=== PATIENT | male | born 1955 | race Caucasian/White ===

== ENCOUNTER 2019-09-04 09:22 | Inpatient (IN) ==
--- NOTE | 2019-08-27 09:21 | EKG Report ---
Test Performed on : 08/27/2019 09:16:38 AM Test Reason : PAT Blood Pressure : / mmHG Vent. Rate : 068 BPM Atrial Rate : 068 BPM P-R Int : 154 ms QRS Dur : 084 ms QT Int : 370 ms P-R-T Axes : 081 093 072 degrees QTc Int : 393 ms Normal sinus rhythm. Rightward axis Borderline ECG When compared with ECG of 17-OCT-2013 15:49, Questionable change in QRS axis Unconfirmed Result
[2019-08-27 09:29] LABS: URINE SOURCE CLEAN CATCH
[2019-08-27 09:44] LABS: BILIRUBIN URINE NEGATIVE (NEGATIVE); BLOOD URINE NEGATIVE (NEGATIVE); COLOR YELLOW; GLUCOSE URINE NEGATIVE (NEGATIVE); KETONE URINE NEGATIVE (NEGATIVE); LEUKOCYTES URINE NEGATIVE (NEGATIVE); NITRITE URINE NEGATIVE (NEGATIVE); PROTEIN URINE NEGATIVE (NEGATIVE); TURBIDITY URINE CLEAR (CLEAR); UROBILINOGEN URINE NORMAL (NORMAL)
[2019-08-27 09:45] LABS: BASO# 0.03 X1000 (0.0-0.2); BASO% 0.4 % (0.0-0.8); EOS# 0.13 X1000 (0.0-0.7); EOS% 1.7 % (0.0-10.0); HEMATOCRIT 43.1 % (42.0-52.0); HEMOGLOBIN 14.5 g/dL (14.0-18.0); IMM GRAN# 0.04 X1000 (0.0-0.04); IMM GRAN% 0.5 % (0.0-0.5); LYMPH# 1.92 X1000 (1.2-3.4); MCH 32.9 PG (27-31); MCHC 33.6 g/dL (33-37); MCV 97.7 FL (81-99); MONO# 0.85 X1000 (0.11-0.59); MONO% 11.1 % (1.7-9.3); MPV 8.9 FL (7.4-10.4); NEUT# 4.71 X1000 (1.4-6.5); NEUT% 61.3 % (42.2-75.2); PLT 254 X1000 (130-400); RBC 4.41 XMIL (4.7-6.1); RDW 13.6 % (11.5-14.5); UR EPITHELIAL CELLS <10 /HPF (<10); URINE BACTERIA NEGATIVE /HPF; URINE RBC <10 /HPF (<10); URINE WBC <10 /HPF (<10); WBC 7.68 X1000 (4.8-10.8)
[2019-08-27 10:00] LABS: INR 0.99; PROTIME 13.2 Seconds (11.0-16.0); PTT 26.6 Seconds (22.3-41.8)
[2019-08-27 10:08] LABS: HEMOGLOBIN A1C 6.3 % (4.8-6.0)
[2019-08-27 10:11] LABS: BUN 17 mg/dL (8-22); CALCIUM 9.5 mg/dL (8.8-10.2); CREATININE 0.7 mg/dL (0.7-1.2); ESTIMATED GFR > 60; GLUCOSE 107 mg/dL (70-104); TCO2 26 mmol/L (25-35)
[2019-08-27 10:18] LABS: CHLORIDE 99 mmol/L (98-107); POTASSIUM 4.5 mmol/L (3.5-5.1); SODIUM 139 mmol/L (136-145)
[2019-08-27 10:40] LABS: AGAP 14; COSMO 280
[2019-09-04] MEDS ORDERED: COLACE ONE (10:11)
[2019-09-04] MEDS ORDERED: LYRICA ONE (10:11)
[2019-09-04] MEDS ORDERED: KEFZOL 1 GM/D5W 1 GM/50 ML IVPB ONE (10:11)
[2019-09-04] MEDS ORDERED: CELEBREX ONE (10:11)
[2019-09-04] MEDS ORDERED: REGLAN ONE (10:11)
[2019-09-04] MEDS ORDERED: PEPCID ONE (10:11)
[2019-09-04] MEDS ORDERED: LR 1,000 ML ONE (10:12)
[2019-09-04] MEDS ORDERED: VANCOMYCIN ONE (10:25)
[2019-09-04] MEDS ORDERED: DURAMORPH ONE (10:25)
[2019-09-04] MEDS ORDERED: EXPAREL 1.3% ONE (10:25)
[2019-09-04] MEDS ORDERED: TORADOL ONE (10:25)
[2019-09-04] MEDS ORDERED: MARCAINE 0.25% PF/EPI 1:200,000 ONE (10:25)
[2019-09-04] MEDS ORDERED: SODIUM CHLORIDE 0.9% ONE (10:25)
[2019-09-04] MEDS ORDERED: DIPRIVAN 1% 500 MG/50 ML BOTTLE ONE (10:33)
[2019-09-04] MEDS ORDERED: FENTANYL ONE (10:36)
[2019-09-04] MEDS ORDERED: XYLOCAINE-MPF 2% ONE (10:37)
[2019-09-04] MEDS ORDERED: VERSED ONE ×2 (10:55→11:31)
[2019-09-04] MEDS: CYKLOKAPRON 1,000 MG/NS 2,000 MG/200 ML IVPB ONE ×2 (11:15→12:58)
[2019-09-04] MEDS ORDERED: EPHEDRINE ONE (12:00)
[2019-09-04] MEDS ORDERED: ZOFRAN ONE (12:09)
[2019-09-04] MEDS ORDERED: DECADRON ONE (12:09)
[2019-09-04] MEDS ORDERED: OFIRMEV 1000 MG/ISOTONIC SOLN 1,000 MG/100 ML BOTTLE ONE (12:09)
[2019-09-04] MEDS ORDERED: DIPRIVAN 1% ONE (12:15)
[2019-09-04 12:22] LABS: URINE SOURCE CATH
[2019-09-04 12:26] LABS: BILIRUBIN URINE NEGATIVE (NEGATIVE); BLOOD URINE NEGATIVE (NEGATIVE); COLOR YELLOW; GLUCOSE URINE NEGATIVE (NEGATIVE); KETONE URINE NEGATIVE (NEGATIVE); LEUKOCYTES URINE NEGATIVE (NEGATIVE); NITRITE URINE NEGATIVE (NEGATIVE); PH URINE 6.5; PROTEIN URINE NEGATIVE (NEGATIVE); SP GRAVITY URINE 1.009; TURBIDITY URINE CLEAR (CLEAR); UROBILINOGEN URINE NORMAL (NORMAL)
[2019-09-04 12:27] LABS: UR EPITHELIAL CELLS <10 /HPF (<10); URINE BACTERIA NEGATIVE /HPF; URINE RBC <10 /HPF (<10); URINE WBC <10 /HPF (<10)
[2019-09-04] MEDS ORDERED: OXY IR ONE (13:57)
[2019-09-04] MEDS ORDERED: NS 1,000 ML ONE (13:57)
--- NOTE | 2019-09-04 14:08 | Diag Imaging Result Doc PS360 ---
EXAM: KNEE 1-2 VIEWS-RIGHT HISTORY: post op total knee TECHNIQUE: Two views COMPARISON: None. FINDINGS: Recent orthopedic replacement of the right knee. There are anterior skin teri with a superior surgical drain. No fracture. No dislocation. IMPRESSION: Good alignment to the femoral and tibial components following orthopedic replacement of the knee. Electronically signed by Joaquin Escobedo 09/04/2019 2:06 PM
[2019-09-04] MEDS ORDERED: ZOFRAN PO PRN (14:45)
[2019-09-04] MEDS ORDERED: MORPHINE IV PRN ×3 (14:45)
[2019-09-04] MEDS ORDERED: OXY IR PO PRN ×2 (14:45)
[2019-09-04] MEDS: NS 1,000 ML IV SCH (16:55)
[2019-09-04] MEDS: TYLENOL PO SCH ×2 (18:14→23:12)
[2019-09-04] MEDS: KEFZOL 1 GM/D5W 1 GM/50 ML IVPB IV SCH (18:14)
[2019-09-04 21:56] LABS: URINE SOURCE CATH
[2019-09-04 22:47] LABS: BILIRUBIN URINE NEGATIVE (NEGATIVE); BLOOD URINE NEGATIVE (NEGATIVE); COLOR YELLOW; GLUCOSE URINE >1000 mg/dL (NEGATIVE); KETONE URINE TRACE mg/dL (NEGATIVE); LEUKOCYTES URINE NEGATIVE (NEGATIVE); NITRITE URINE NEGATIVE (NEGATIVE); PROTEIN URINE TRACE mg/dL (NEGATIVE); TURBIDITY URINE CLEAR (CLEAR); UR EPITHELIAL CELLS <10 /HPF (<10); URINE BACTERIA NEGATIVE /HPF; URINE RBC <10 /HPF (<10); URINE WBC <10 /HPF (<10); UROBILINOGEN URINE NORMAL (NORMAL)
[2019-09-04] MEDS: PERIDEX MT SCH (23:12)
[2019-09-05] MEDS: NS 1,000 ML IV SCH (02:12)
[2019-09-05] MEDS: KEFZOL 1 GM/D5W 1 GM/50 ML IVPB IV SCH (02:12)
[2019-09-05] MEDS: TYLENOL PO SCH ×2 (04:52→06:59)
[2019-09-05 06:24] LABS: HEMATOCRIT 36.5 % (42.0-52.0); HEMOGLOBIN 12.2 g/dL (14.0-18.0)
[2019-09-05 06:52] LABS: AGAP 11; BUN 10 mg/dL (8-22); CALCIUM 8.4 mg/dL (8.8-10.2); CHLORIDE 100 mmol/L (98-107); COSMO 270; CREATININE 0.6 mg/dL (0.7-1.2); ESTIMATED GFR > 60; GLUCOSE 111 mg/dL (70-104); SODIUM 135 mmol/L (136-145); TCO2 24 mmol/L (25-35)
--- NOTE | 2019-09-05 07:43 | OPERATIVE NOTE ---
PROCEDURE DATE: 09/04/2019 PREOPERATIVE DIAGNOSIS: Degenerative arthritis, right knee. POSTOPERATIVE DIAGNOSIS: Degenerative arthritis, right knee. PROCEDURE: Right total knee arthroplasty with DePuy Attune size 7 posterior stabilized femur, size 8 tibial tray, a 5 mm rotating platform tibial insert, and a 38 mm medialized anatomic patella. SURGEON: Will Oleary M.D. ENDODONTIST: NOE Linda, who was necessary for proper retraction and manipulation of the extremity during the case. SECOND TRUCK ASSEMBLER: Herminio Vergara RN. BRIEF HISTORY: The patient is a pleasant, 63-year-old male with a chronic history of pain in his right knee. He has continued pain and discomfort despite appropriate nonoperative treatment. X- rays revealed degenerative arthritis, and his pain has progressed to affect his activities of daily living. Recommendation to proceed with right total knee arthroplasty was offered. Risks and benefits were discussed, including risks anesthesia, , bleeding, infection, failure to relieve pain, postoperative stiffness, nerve injury, blood clots, and other imponderables. All questions were answered. The patient's family wished to proceed with surgery. To be the brief history ago record very to [facility] surgeons [facility] 1st assistants make and calm and was necessary for proper retraction replaced extremity the case. ANESTHESIA: Spinal. IV FLUIDS: 1900 mL of lactated Ringer. ESTIMATED BLOOD LOSS: 50 mL. TOURNIQUET TIME: 90 minutes at 300 mmHg. COMPLICATIONS: None. DETAILS OF OPERATION: The patient was taken to the operating room and underwent spinal anesthesia. After adequate anesthesia was obtained, the patient was placed supine on the operating table. The right lower extremity was subsequently prepped and draped in the usual sterile fashion. An Esmarch was used to exsanguinate the right lower extremity, and the tourniquet was inflated to 300 mmHg. A standard anterior incision was made with a skin knife. Medial and lateral skin envelopes were developed. Standard medial parapatellar arthrotomy was then performed. Patella fat pad was excised. The patella was everted and resected in standard fashion. A protective disk was then placed. Retractor was then placed. Attention was then turned to the distal femur. Approximately 1 cm anterior to the PCL insertion, a starting reamer was passed. Intramedullary guide with a distal femoral cutting block was pinned in position. The distal femoral cut was then performed in standard fashion. A sizing block was placed and measured size 7. Corresponding pins were placed. A size 7 cutting block was pinned in position. Anterior, posterior, and chamfer cuts were then made. Using the extramedullary guide, the proximal tibia cutting block was pinned in position. Had good alignment confirmed with the alignment marly. The proximal tibia was then resected. Medial and lateral menisci were excised. A curved osteotome was used to remove the posterior osteophytes. A spacer block was placed and had good soft tissue balance in both flexion and extension. Attention was turned back to the proximal tibia, where a size 8 tibial tray appeared to be the correct size. This was pinned in position. This was followed by a central reamer and a fin punch. A box cutting guide was then pinned on the distal femur, and box cut was performed. The trial femoral component was then placed, and 2 lug holes were drilled. Trial tibial insert was then placed and had good soft tissue balancing. Attention was turned back to the patella, and the size 38 appeared to be the correct size. Corresponding holes were drilled. The trial patella component was then placed and had good patellofemoral tracking. The trial components were then removed. Copious irrigation was then performed with antibiotic pulsatile lavage while vancomycin was mixed in cement on the back table. Sequential cementing was then performed, first with the tibial tray, and excess cement was removed with a Wingate, followed by the femoral component, and excess cement was removed with a Wingate, followed by trial tibial insert, and full extension and axial loading was maintained while cement cured. The patella component was cemented in standard fashion. Patella clamp was placed. While the cement was curing, Exparel was placed in the deep soft tissue, as well as the subcutaneous tissue. After cement had cured, peripheral cement was removed with a small osteotome. The 5 mm rotating platform tibial insert appeared to be the correct size. The trial insert was removed. Exparel was placed in the deep posterior capsule. The wound was copiously irrigated with antibiotic pulsatile lavage. A size 5 mm rotating platform tibial insert was then placed. The knee was then carried through range of motion. Good range of motion, good soft tissue balance, and good patellofemoral tracking. A 1/ Hemovac drain was placed and was not sewn in. Copious irrigation was then performed once again with antibiotic pulsatile lavage. Then, #1 Vicryl was used to repair the arthrotomy, followed by 2-0 Vicryl to repair the subcutaneous tissue, and skin teri. Adaptic, sterile 4 x 4's, Webril, cryo unit, and Roscoe wrap were applied to the right lower extremity. The patient tolerated the procedure well. No complications. Transferred to the recovery room in stable condition. cc: Will Oleary MD
[2019-09-05 07:49] VITALS: BP 106/71
[2019-09-05] MEDS: PERIDEX MT SCH (08:52)
[2019-09-05] MEDS ORDERED: ASPIRIN PO SCH (09:00)
--- NOTE | 2019-09-05 12:56 | ORTHOPAEDICS PROGRESS NOTE ---
DATE: 09/05/2019 SUBJECTIVE: The patient is a pleasant 63-year-old male, who is 1 day status post right total knee arthroplasty. He is currently resting comfortably. OBJECTIVE: On physical examination, patient's right lower extremity revealed his wound looks good. There are no signs or symptoms of infection. His calf is soft. He is able to perform straight leg raise. He has active dorsiflexion, plantar flexion. LABS: His labs are pending. IMPRESSION: Postoperative day #1 status post right total knee arthroplasty. PLAN: At this point, we will plan on discharging him home after physical therapy if he is mobilizing well. We will arrange for outpatient physical therapy. The patient will follow up in the office on 09/17/2019. cc: Will Oleary MD
== END 2019-09-05 10:46 | disposition home or self-care (01) | DRG 470 ==
LOC: 4N 09:22 → OR 09:22
PROVIDERS: ADMIT Orthopaedic Surgery Adult Reconstructive Orthopaedic Surgery; ATTEND Orthopaedic Surgery Adult Reconstructive Orthopaedic Surgery